=== PATIENT | female | born 1950 | race Caucasian/White ===

== ENCOUNTER → 2017-03-10 | Outpatient (CLI) | payer MEDICARE ==
[~2017-03-10] VITALS: Ht 166.4 cm; Wt 63.4 kg
[~2017-03-10] MED LIST: AEC81 PO; ASPI-1012 PO; ATOR10 PO; CEFAZOLIN SODIUM 1 GM VIAL IVP ONE; CLON0.1T PO; GENTAMICIN SULFATE 240 MG in SODIUM CHLORIDE 0.9% 100 ML IV SCH; HYDR-309 PO; KETO10 PO; LEVO50TA11 PO; LEVO88TA7 PO; PIND10TA2 PO; PREG75 PO; TEMA15CA PO; TIZA4TAB4 PO; TRAM50TA4 PO; TRAZ-147 PO; [UNRECOGNIZED DRUG - OTHER] TP
[2017-03-10 14:01] LABS: BASOPHILS % (AUTO) 0.7 % (0.0-5.0); EOSINOPHILS % (AUTO) 3.1 % (0.0-8.0); HEMATOCRIT 38.5 % (36-48); LYMPHOCYTES % (AUTO) 24.1 % (21.0-51.0); MEAN CORPUSCULAR HEMOGLOBIN 30.7 pg (27.0-33.0); MEAN CORPUSCULAR HGB CONC 33.4 g/dL (32.0-36.0); MEAN CORPUSCULAR VOLUME 91.8 fL (79-99); MONOCYTES % (AUTO) 10.3 % (3.0-13.0); NEUTROPHILS % (AUTO) 61.8 % (40.0-77.0); PLATELET COUNT (AUTO) 264 K/uL (130-400); RED CELL DISTRIBUTION WIDTH 13.1 % (11.0-15.5); WHITE BLOOD COUNT (AUTO) 5.9 K/uL (4.8-10.8)
[2017-03-10 14:10] VITALS: BP 142/61
[2017-03-10 14:11] LABS: CREATININE 0.8 mg/dL (0.5-1.5); POTASSIUM 4.2 mmol/L (3.5-5.1)
[2017-03-10 14:15] LABS: INR 0.94 (0.85-1.15); PARTIAL THROMBOPLASTIN TIME 26.1 SEC (26.3-35.5); PROTHROMBIN TIME 9.9 SEC (9.6-11.6)
[2017-03-10 15:35] LABS: APPEARANCE,URINE Clear (CLEAR); BILIRUBIN,URINE Negative (NEGATIVE); COLOR,URINE Yellow (YELLOW); GLUCOSE, URINE (UA) Negative (NEGATIVE); KETONES,URINE Negative (NEGATIVE); LEUKOCYTE ESTERASE ,URINE Moderate (NEGATIVE); NITRATE,URINE Negative (NEGATIVE); OCCULT BLOOD,URINE Negative (NEGATIVE); PROTEIN,URINE Negative (NEGATIVE); UROBILINOGEN,URINE 0.2 mg/dL (0.2-1.0)
[2017-03-10 15:43] LABS: BACTERIA,URINE None Seen /HPF (None Seen); RBC,URINE None Seen /HPF (0-1); RENAL EPITHELIAL CELLS,URINE Few /LPF (None Seen); WBC,URINE 0-1 /HPF (0-1)
== END | disposition home or self-care (01) ==
LOC: DAH 10:00 → EDSTATUS 03-17 16:00
PROVIDERS: ATTEND Orthopaedic Surgery
DX: M17.12 Unilateral primary osteoarthritis, left knee (principal); R79.1 Abnormal coagulation profile; Z96.642 Presence of left artificial hip joint
CPT/HCPCS: 36415; 80048; 81001; 85025; 85610; 85730; J1580

== ENCOUNTER 2017-05-26 15:30 | Inpatient (IN) | payer MEDICARE ==
[~2017-05-26] VITALS: Ht 166.4 cm; Wt 61.6 kg
[2017-05-26 15:30] VITALS: BP 137/63
[~2017-05-26 15:30] MED LIST changes: -AEC81 PO; -ASPI-1012 PO; -CEFAZOLIN SODIUM 1 GM VIAL IVP ONE; -CLON0.1T PO; -GENTAMICIN SULFATE 240 MG in SODIUM CHLORIDE 0.9% 100 ML IV SCH; -HYDR-309 PO; -KETO10 PO; -LEVO50TA11 PO; -LEVO88TA7 PO; -PREG75 PO; -TIZA4TAB4 PO; -TRAM50TA4 PO; -TRAZ-147 PO; -[UNRECOGNIZED DRUG - OTHER] TP
[2017-05-26 15:51] LABS: MEAN CORPUSCULAR HGB CONC 34.3 g/dL (32.0-36.0); MEAN CORPUSCULAR VOLUME 90.4 fL (79-99); PLATELET COUNT (AUTO) 273 K/uL (130-400); RED BLOOD CELL COUNT(AUTO) 4.31 MIL/uL (4.00-5.50); RED CELL DISTRIBUTION WIDTH 13.7 % (11.0-15.5); WHITE BLOOD COUNT (AUTO) 7.5 K/uL (4.8-10.8)
[2017-05-26 15:55] LABS: APPEARANCE,URINE CLEAR (CLEAR); BILIRUBIN,URINE Small (NEGATIVE); COLOR,URINE Dark Yellow (YELLOW); GLUCOSE, URINE (UA) Negative (NEGATIVE); KETONES,URINE Trace mg/dL (NEGATIVE); LEUKOCYTE ESTERASE ,URINE Moderate (NEGATIVE); NITRATE,URINE Negative (NEGATIVE); OCCULT BLOOD,URINE Negative (NEGATIVE); PROTEIN,URINE Negative (NEGATIVE)
[2017-05-26 16:05] LABS: INR 0.96 (0.85-1.15); PARTIAL THROMBOPLASTIN TIME 24.4 SEC (26.3-35.5); PROTHROMBIN TIME 10.1 SEC (9.6-11.6)
[2017-05-26 16:18] LABS: CREATININE 0.8 mg/dL (0.5-1.5); POTASSIUM 3.9 mmol/L (3.5-5.1)
[2017-05-26] MEDS ORDERED: TRAM50TA4 PO (16:21)
[2017-05-26] MEDS ORDERED: TIZA4TAB4 PO (16:21)
[2017-05-26] MEDS ORDERED: [UNRECOGNIZED DRUG - OTHER] TP (16:21)
[2017-05-26] MEDS ORDERED: LEVO88TA7 PO (16:21)
[2017-05-26] MEDS ORDERED: TRAZ-147 PO (16:21)
[2017-05-26 17:08] LABS: RBC,URINE 0-1 /HPF (0-1)
[2017-05-26 17:09] LABS: BACTERIA,URINE Few /HPF (None Seen); MUCUS,URINE Rare LPF (None Seen); SQUAMOUS EPITHELIAL CELL,UR Few /HPF (0-2)
[2017-05-26 17:30] LABS: EOSINOPHILS % (MANUAL) 5 % (1-6); LYMPHOCYTES % (MANUAL) 29 % (22-44); MAN.DIFF COMMENT-IMPRESSION MANUAL DIFFERENTIAL; MONOCYTES % (MANUAL) 11 % (2-9); REACTIVE LYMPHOCYTES 4 % (0-0); SEGMENTED NEUTROPHILS % 51 % (40-70)
[2017-05-29] VITALS (28 sets, daily range): BP systolic 144–192; BP diastolic 64–97
[2017-05-29] MEDS: CEFAZOLIN SODIUM 1 GM VIAL IVP SCH ×3 (06:00→17:19)
[2017-05-29] MEDS ORDERED: LACTATED RINGERS 1000ML 1,000 ML IV ONE (06:54)
[2017-05-29] MEDS ORDERED: TRANEXAMIC ACID 1000MG/10ML IV ONE (06:56)
[2017-05-29] MEDS ORDERED: BUPIVACAINE/EPI/PF 0.25% 30ML VIAL IJ ONE (06:56)
[2017-05-29] MEDS ORDERED: CEFAZOLIN SODIUM 1 GM VIAL ONE (06:56)
[2017-05-29] MEDS: GENTAMICIN SULFATE 240 MG in SODIUM CHLORIDE 0.9% 100 ML IV SCH ×2 (07:22)
[2017-05-29] MEDS ORDERED: ROPIVACAINE 0.5% 5MG/ML 30ML IJ ONE (08:09)
[2017-05-29] MEDS ORDERED: PROPOFOL 10 MG/ML 20ML VIAL IV ONE ×2 (08:11→09:55)
[2017-05-29] MEDS ORDERED: FENTANYL CITRATE PF 50 MCG/1 ML 2ML VIAL ONE ×5 (08:11→11:42)
[2017-05-29] MEDS ORDERED: MIDAZOLAM HCL 1 MG/ML 2ML VIAL ONE (08:11)
[2017-05-29] MEDS ORDERED: EPHEDRINE SULFATE 50 MG/ML AMPULE ONE (08:56)
[2017-05-29] MEDS ORDERED: DEXAMETHASONE SOD PHOSPHATE 4 MG/ML 1ML VIAL ONE (09:54)
[2017-05-29] MEDS ORDERED: DEXAMETHASONE SOD PHOSPHATE 10MG/ML 1ML VIAL ONE (09:54)
[2017-05-29] MEDS ORDERED: SODIUM CHLORIDE 0.9% 10 ML VIAL ONE (09:54)
[2017-05-29] MEDS ORDERED: ONDANSETRON HCL MDV 20ML 2 MG/ML VIAL ONE (09:54)
[2017-05-29] MEDS ORDERED: PHENYLEPHRINE HCL 10 MG/ML 1ML VIAL IV ONE (09:54)
[2017-05-29] MEDS ORDERED: GLYCOPYRROLATE 0.2 MG/ML 5 ML VIAL ONE (10:09)
[2017-05-29] MEDS ORDERED: NEOSTIGMINE METHYLSULFATE 1MG/ML IV ONE (10:09)
[2017-05-29] MEDS ORDERED: POTASSIUM CHLORIDE 20 MEQ ERTAB PO PRN (10:30)
[2017-05-29] MEDS: ACETAMINOPHEN 325 MG TAB PO SCH ×2 (10:30→17:19)
[2017-05-29] MEDS ORDERED: PROMETHAZINE HCL 25 MG/ML 1ML AMPULE IM PRN (10:30)
[2017-05-29] MEDS ORDERED: OXYCODONE HCL 5 MG TAB PO PRN (10:30)
[2017-05-29] MEDS ORDERED: LIDOCAINE HCL-MPF 1% 2ML VIAL IVP PRN (10:30)
[2017-05-29] MEDS ORDERED: DIPHENHYDRAMINE HCL 25 MG CAPSULE PO PRN (10:30)
[2017-05-29] MEDS ORDERED: POTASSIUM CHLORIDE 20MEQ/100ML 100 ML IV PRN (10:30)
[2017-05-29] MEDS ORDERED: POTASSIUM CHLORIDE 10% ELIXIR 20 MEQ/15 ML UDCUP PO PRN (10:30)
[2017-05-29] MEDS ORDERED: DiphenhydrAMINE HCL 50 MG/ML VIAL IVP PRN (10:30)
[2017-05-29] MEDS ORDERED: FERROUS FUMARATE 324 MG TABLET PO PRN (10:30)
[2017-05-29] MEDS ORDERED: LABETALOL HCL 5 MG/ML 20ML VIAL IV ONE (11:10)
[2017-05-29] MEDS ORDERED: MEPERIDINE-PF 25 MG/ML SYG ONE ×2 (11:16→11:33)
[2017-05-29] MEDS: PSYLLIUM SEED 1 EACH PACKET PO SCH (12:00)
[2017-05-29] MEDS ORDERED: TIZANIDINE HCL 2 MG TABLET PO PRN (14:00)
[2017-05-29] MEDS ORDERED: CEFAZOLIN 2GM / 50 ML 50 ML IV SCH (15:30)
[2017-05-29] MEDS: OXYCODONE HCL 5 MG TAB PO PRN (15:32)
[2017-05-29] MEDS: SODIUM CHLORIDE 0.9% 1000ML 1,000 ML IV SCH ×2 (15:33→21:50)
[2017-05-29] MEDS: TRAMADOL HCL 50 MG TABLET PO PRN (17:27)
[2017-05-29] MEDS: KETOROLAC TROMETHAMINE 15MG/ML IV PRN (18:16)
[2017-05-29] MEDS ORDERED: PREGABALIN 25 MG CAP PO SCH (21:00)
[2017-05-29] MEDS ORDERED: TEMAZEPAM 15 MG CAPSULE PO SCH (21:00)
[2017-05-29] MEDS: PREGABALIN 75 MG CAPSULE PO SCH (21:00)
[2017-05-29] MEDS: ASPIRIN 325 MG TABLET PO SCH (21:46)
[2017-05-29] MEDS: FAMOTIDINE 20MG TAB 20 MG TAB PO SCH (21:46)
[2017-05-29] MEDS: TRAZODONE HCL 100 MG TABLET PO SCH (21:47)
[2017-05-29] MEDS: CELECOXIB 200 MG CAP PO SCH (21:47)
[2017-05-29] MEDS: PINDOLOL 5 MG TAB PO SCH (21:48)
[2017-05-30] VITALS: BP 106/63
[2017-05-30] MEDS: KETOROLAC TROMETHAMINE 15MG/ML IV PRN ×4 (00:26→21:25)
[2017-05-30] MEDS: CEFAZOLIN SODIUM 1 GM VIAL IVP SCH (00:26)
[2017-05-30] MEDS: ACETAMINOPHEN 325 MG TAB PO SCH ×5 (00:27→22:30)
[2017-05-30 04:51] VITALS: BP 106/60
[2017-05-30] MEDS: SODIUM CHLORIDE 0.9% 1000ML 1,000 ML IV SCH (05:39)
[2017-05-30] MEDS: TRAMADOL HCL 50 MG TABLET PO PRN ×3 (05:43→17:56)
[2017-05-30 05:45] LABS: HEMATOCRIT 31.3 % (36-48); MEAN CORPUSCULAR HGB CONC 34.2 g/dL (32.0-36.0); MEAN CORPUSCULAR VOLUME 90.5 fL (79-99); PLATELET COUNT (AUTO) 193 K/uL (130-400); RED BLOOD CELL COUNT(AUTO) 3.45 MIL/uL (4.00-5.50); RED CELL DISTRIBUTION WIDTH 13.5 % (11.0-15.5); WHITE BLOOD COUNT (AUTO) 8.6 K/uL (4.8-10.8)
[2017-05-30 05:54] LABS: CREATININE 0.9 mg/dL (0.5-1.5); POTASSIUM 4.1 mmol/L (3.5-5.1)
[2017-05-30 07:40] VITALS: BP 112/55
[2017-05-30] MEDS: LEVOTHYROXINE 88 MCG TABLET PO SCH (08:06)
[2017-05-30] MEDS: ATORVASTATIN CALCIUM 20 MG TABLET PO SCH (08:34)
[2017-05-30] MEDS: ASPIRIN 325 MG TABLET PO SCH ×2 (08:34→21:24)
[2017-05-30] MEDS: FAMOTIDINE 20MG TAB 20 MG TAB PO SCH ×2 (08:35→21:24)
[2017-05-30] MEDS: CALCIUM CARBONATE 500 MG TABLET PO PRN ×2 (08:35→21:28)
[2017-05-30] MEDS: CELECOXIB 200 MG CAP PO SCH ×2 (08:35→21:24)
[2017-05-30] MEDS: PINDOLOL 5 MG TAB PO SCH ×2 (08:35→21:24)
[2017-05-30] MEDS: POLYETHYLENE GLYCOL 3350 17 GM POWD.PACK PO SCH (08:35)
[2017-05-30] MEDS: PREGABALIN 75 MG CAPSULE PO SCH ×2 (08:35→21:00)
[2017-05-30] MEDS: [UNRECOGNIZED DRUG - OTHER] TP SCH (09:00)
[2017-05-30 11:12] VITALS: BP 114/55
[2017-05-30] MEDS: PSYLLIUM SEED 1 EACH PACKET PO SCH (12:09)
[2017-05-30 16:46] VITALS: BP 121/63
[2017-05-30 19:58] VITALS: BP 128/63
[2017-05-30] MEDS ORDERED: TEMAZEPAM 15 MG CAPSULE PO SCH (21:00)
[2017-05-30] MEDS: TRAZODONE HCL 100 MG TABLET PO SCH (21:24)
[2017-05-30] MEDS: OXYCODONE HCL 5 MG TAB PO PRN (23:48)
[2017-05-31 00:10] VITALS: BP 125/59
[2017-05-31] MEDS: KETOROLAC TROMETHAMINE 15MG/ML IV PRN ×3 (03:15→15:31)
[2017-05-31] MEDS: ACETAMINOPHEN 325 MG TAB PO SCH ×3 (04:00→15:29)
[2017-05-31] MEDS: TRAMADOL HCL 50 MG TABLET PO PRN ×2 (04:01→14:19)
[2017-05-31 04:29] VITALS: BP 115/58
[2017-05-31 07:37] VITALS: BP 124/58
[2017-05-31] MEDS: PINDOLOL 5 MG TAB PO SCH (09:00)
[2017-05-31] MEDS: [UNRECOGNIZED DRUG - OTHER] TP SCH (09:00)
[2017-05-31] MEDS: PREGABALIN 75 MG CAPSULE PO SCH (09:00)
[2017-05-31] MEDS: LEVOTHYROXINE 88 MCG TABLET PO SCH (09:00)
[2017-05-31] MEDS: CELECOXIB 200 MG CAP PO SCH (09:09)
[2017-05-31] MEDS: ASPIRIN 325 MG TABLET PO SCH (09:09)
[2017-05-31] MEDS: FAMOTIDINE 20MG TAB 20 MG TAB PO SCH (09:09)
[2017-05-31] MEDS: POLYETHYLENE GLYCOL 3350 17 GM POWD.PACK PO SCH (09:11)
[2017-05-31] MEDS: ATORVASTATIN CALCIUM 20 MG TABLET PO SCH (09:11)
[2017-05-31] MEDS ORDERED: BISACODYL 5 MG TABLET.DR PO PRN (10:30)
[2017-05-31 11:16] VITALS: BP 124/60
[2017-05-31] MEDS: PSYLLIUM SEED 1 EACH PACKET PO SCH (12:00)
[2017-05-31] MEDS ORDERED: PREG75 PO (14:38)
[2017-05-31] MEDS ORDERED: HYDR-309 PO (14:38)
[2017-05-31] MEDS ORDERED: KETO10 PO (14:38)
[2017-05-31] MEDS ORDERED: ASPI-1012 PO (14:38)
[2017-06-01] MEDS ORDERED: BISACODYL 10 MG SUPP.RECT RC PRN (10:30)
== END 2017-05-31 18:32 | disposition home health service (06) | DRG 470 ==
LOC: DAHIP 05-29 06:29 → EDSTATUS 05-29 08:00 → 4AH 05-29 11:51
PROVIDERS: ADMIT Orthopaedic Surgery; ATTEND Orthopaedic Surgery
PROC: 0SRD0J9 Replacement of Left Knee Joint with Synthetic Substitute, Cemented, Open Approach (ICD-10-PCS; principal; 2017-05-29 08:23)
DX: M17.12 Unilateral primary osteoarthritis, left knee (principal); E03.9 Hypothyroidism, unspecified; I10 Essential (primary) hypertension; Z96.652 Presence of left artificial knee joint; M79.7 Fibromyalgia; G89.29 Other chronic pain; Z88.7 Allergy status to serum and vaccine
CPT/HCPCS: 36415; 80048; 81001; 85025; 85027; 85610; 85730; 88304; 88311; 96374; A4218; C1713; J0690; J1100; J1580; J1885; J2175; J2250; J2370; J2704; J2710; J2795; J3010; J3490; J7030; J7120

== ENCOUNTER → 2018-05-02 | Outpatient (CLI) | payer MEDICARE ==
[~2018-05-02] MED LIST changes: +ASPI-1012 PO; +HYDR-4457 PO; +KETO10 PO; +LEVO88TA7 PO; +PREG75 PO; +TIZA4TAB4 PO; +TRAM50TA4 PO; +TRAZ-187 PO; +[UNRECOGNIZED DRUG - OTHER] TP
== END | disposition home or self-care (01) ==
LOC: RAH 12:56
PROVIDERS: ATTEND Orthopaedic Surgery
DX: M48.061 Spinal stenosis, lumbar region without neurogenic claudication (principal); M47.816 Spondylosis without myelopathy or radiculopathy, lumbar region
CPT/HCPCS: 72148

== ENCOUNTER 2019-04-12 17:53 | Observation (INO) | payer MEDICARE ==
[~2019-04-12] VITALS: Ht 165.1 cm; Wt 69.0 kg
[~2019-04-12 17:53] MED LIST changes: +ASPI-1005 PO; -ASPI-1012 PO; +CLON0.1T PO; +GABA-531 PO; -KETO10 PO; +LOSA100T58 PO; -PREG75 PO; -TEMA15CA PO; -TIZA4TAB4 PO; -TRAM50TA4 PO; -TRAZ-187 PO; +ZOLP10TA6 PO
[2019-04-12 18:54] LABS: BASOPHILS % (AUTO) 0.5 % (0.0-5.0); EOSINOPHILS % (AUTO) 0.8 % (0.0-8.0); HEMATOCRIT 31.1 % (36-48); LYMPHOCYTES % (AUTO) 15.8 % (21.0-51.0); MEAN CORPUSCULAR HEMOGLOBIN 29.7 pg (27.0-33.0); MEAN CORPUSCULAR HGB CONC 33.8 g/dL (32.0-36.0); MEAN CORPUSCULAR VOLUME 88.1 fL (79-99); MONOCYTES % (AUTO) 7.5 % (3.0-13.0); NEUTROPHILS % (AUTO) 74.8 % (40.0-77.0); PLATELET COUNT (AUTO) 455 K/uL (130-400); RED BLOOD CELL COUNT(AUTO) 3.53 MIL/uL (4.00-5.50); RED CELL DISTRIBUTION WIDTH 13.5 % (11.0-15.5); WHITE BLOOD COUNT (AUTO) 10.4 K/uL (4.8-10.8)
[2019-04-12] MEDS ORDERED: MORPHINE SULFATE 4 MG/1ML SYG ONE (18:55)
[2019-04-12] MEDS ORDERED: SODIUM CHLORIDE 0.9% 1000ML 1,000 ML IV ONE (18:55)
[2019-04-12] MEDS ORDERED: ONDANSETRON HCL 4 MG/2 ML VIAL ONE ×2 (18:55→21:12)
[2019-04-12 19:04] LABS: CREATININE 0.8 mg/dL (0.5-1.5)
[2019-04-12 19:10] LABS: ALBUMIN 3.3 g/dL (3.5-5.0); TOTAL PROTEIN, SERUM 7.5 g/dL (6.0-8.3)
[2019-04-12] MEDS ORDERED: DICYCLOMINE HCL 10 MG/ML 2ML AMP IM ONE (19:52)
[2019-04-12] MEDS ORDERED: BISACODYL 10 MG SUPP.RECT RC ONE (19:52)
[2019-04-12] MEDS ORDERED: HYDROMORPHONE 1 MG/1 ML AMP ONE ×2 (19:54→20:20)
[2019-04-12 20:10] LABS: OCCULT BLOOD STOOL SINGLE ONLY NEGATIVE (NEGATIVE)
[2019-04-12] MEDS: SODIUM CHLORIDE 0.9% 1000ML 1,000 ML IV SCH (21:15)
[2019-04-12 22:19] LABS: BASOPHILS % (AUTO) 0.3 % (0.0-5.0); EOSINOPHILS % (AUTO) 0.3 % (0.0-8.0); LYMPHOCYTES % (AUTO) 14.3 % (21.0-51.0); MEAN CORPUSCULAR HEMOGLOBIN 29.3 pg (27.0-33.0); MEAN CORPUSCULAR VOLUME 88.8 fL (79-99); MONOCYTES % (AUTO) 8.7 % (3.0-13.0); NEUTROPHILS % (AUTO) 75.9 % (40.0-77.0); PLATELET COUNT (AUTO) 410 K/uL (130-400); RED BLOOD CELL COUNT(AUTO) 3.38 MIL/uL (4.00-5.50); RED CELL DISTRIBUTION WIDTH 13.4 % (11.0-15.5); WHITE BLOOD COUNT (AUTO) 11.4 K/uL (4.8-10.8)
[2019-04-12 22:42] LABS: CREATININE 1.6 mg/dL (0.5-1.5); POTASSIUM 3.5 mmol/L (3.5-5.1)
[2019-04-12 22:46] LABS: ALBUMIN 2.9 g/dL (3.5-5.0); TOTAL PROTEIN, SERUM 6.7 g/dL (6.0-8.3)
[2019-04-12 23:02] VITALS: BP 123/60
[2019-04-13] MEDS: KETOROLAC TROMETHAMINE 30MG/ML IV PRN ×2 (02:33→14:41)
[2019-04-13 03:53] VITALS: BP 104/50
[2019-04-13 07:46] VITALS: BP 117/60
[2019-04-13] MEDS ORDERED: DOCUSATE NA 100MG/10ML UDCUP PO SCH (09:00)
[2019-04-13] MEDS ORDERED: METOCLOPRAMIDE 10 MG/2 ML VIAL IVP SCH (09:00)
[2019-04-13] MEDS ORDERED: PANTOPRAZOLE SODIUM 40 MG TABLET.DR PO SCH (09:00)
[2019-04-13] MEDS: SODIUM CHLORIDE 0.9% 1000ML 1,000 ML IV SCH (10:35)
[2019-04-13 10:57] VITALS: BP 154/70
[2019-04-13 15:30] VITALS: BP 136/82
--- NOTE | 2019-04-13 15:31 | NUR ---
Initial: Met with pt and dtr Khadra this afternoon to discuss dcp. Per pt she lives alone but her dtr is currently staying with her to assist her as needed. Pt mentions that she receives therapy from [facility]. Per pt she has a walker, BSC, rollator, wc and sh chair avail. Per pt she feels safe and comfortable to return [place] at [place]. CM to continue to follow and wait for MD recommendations. Addendum: 04/13/19 at 1533 by GRACIE BAILEY Amended: Links added.
== END 2019-04-13 16:40 | disposition home or self-care (01) ==
LOC: EDH 17:53 → EDHIP 21:13 → INTOOBSV 21:13 → 4CH 22:06
PROVIDERS: ADMIT Internal Medicine; ATTEND Internal Medicine
DX: K59.00 Constipation, unspecified (principal); R10.84 Generalized abdominal pain; R11.2 Nausea with vomiting, unspecified; M79.7 Fibromyalgia; E06.3 Autoimmune thyroiditis; I10 Essential (primary) hypertension; R19.7 Diarrhea, unspecified; Z96.653 Presence of artificial knee joint, bilateral; Z79.82 Long term (current) use of aspirin; Z79.899 Other long term (current) drug therapy
CPT/HCPCS: 36415; 74018; 74176; 80053 ×2; 82270; 84484; 85025 ×2; 87046; 87324; 93005; 96374; 96375; 96376; 99284; 99285; G0378 ×19; J0500; J1170 ×2; J1885 ×2; J2270; J2405 ×2; J2765; J7030

== ENCOUNTER 2022-04-05 14:32 | Emergency (ER) | payer MEDICARE ==
[~2022-04-05] VITALS: Ht 165.1 cm; Wt 52.2 kg
[2022-04-05 14:39] VITALS: BP 133/73
[2022-04-05 16:04] LABS: BASOPHILS % (AUTO) 0.4 % (0.0-5.0); EOSINOPHILS % (AUTO) 2.2 % (0.0-8.0); HEMATOCRIT 40.4 % (36-48); LYMPHOCYTES % (AUTO) 26.3 % (21.0-51.0); MEAN CORPUSCULAR HEMOGLOBIN 30.1 pg (27.0-33.0); MEAN CORPUSCULAR HGB CONC 33.9 g/dL (32.0-36.0); MEAN CORPUSCULAR VOLUME 88.8 fL (79-99); MONOCYTES % (AUTO) 14.2 % (3.0-13.0); NEUTROPHILS % (AUTO) 56.5 % (40.0-77.0); PLATELET COUNT (AUTO) 200 K/uL (130-400); RED BLOOD CELL COUNT(AUTO) 4.55 MIL/uL (4.00-5.50)
[2022-04-05 16:13] LABS: POTASSIUM 3.7 mmol/L (3.5-5.1)
[2022-04-05 16:22] LABS: ALBUMIN 3.9 g/dL (3.5-5.0); TOTAL PROTEIN, SERUM 7.8 g/dL (6.0-8.3)
[2022-04-05] MEDS ORDERED: IPRATROPIUM/ALBUTEROL SULFATE 3 ML SOLUTION IH STA (16:48)
[2022-04-05] MEDS ORDERED: SOLU-MEDROL 125MG VIAL IVP ONE (17:00)
[2022-04-05] MEDS ORDERED: ALBU18HF7 IH (17:44)
[2022-04-05] MEDS ORDERED: LORA10TA7 PO (17:44)
== END 2022-04-05 18:01 | disposition home or self-care (01) ==
LOC: EDH 14:32
DX: J45.909 Unspecified asthma, uncomplicated (principal); M79.7 Fibromyalgia; I10 Essential (primary) hypertension; Z90.49 Acquired absence of other specified parts of digestive tract; Z79.899 Other long term (current) drug therapy; Z20.822 Contact with and (suspected) exposure to COVID-19; Z79.82 Long term (current) use of aspirin
CPT/HCPCS: 99285; 96374; 71045; 87635; 84484; 80053; 83880; 85025; 36415; 93005; 94640; C9803; J2930

== ENCOUNTER → 2022-06-15 | Outpatient (CLI) | payer MEDICARE ==
[~2022-06-15] MED LIST changes: +ALBU18HF7 IH; +IOHEXOL-350 75 ML VIAL IV ONE; +LORA10TA7 PO
== END | disposition home or self-care (01) ==
LOC: RAH 10:00
PROVIDERS: ATTEND Family Medicine
DX: K80.20 Calculus of gallbladder without cholecystitis without obstruction (principal); K57.90 Diverticulosis of intestine, part unspecified, without perforation or abscess without bleeding; G47.33 Obstructive sleep apnea (adult) (pediatric); R19.4 Change in bowel habit; R11.2 Nausea with vomiting, unspecified
CPT/HCPCS: 74178; Q9967

== ENCOUNTER → 2023-09-25 | Outpatient (CLI) | payer MEDICARE ==
[~2023-09-25] MED LIST changes: +IOHEXOL 350 MG/ML 100ML INFUS..BTL IV ONE; -IOHEXOL-350 75 ML VIAL IV ONE; -LOSA100T58 PO; +LOSA100T59 PO
== END | disposition home or self-care (01) ==
LOC: RAH 07:41
PROVIDERS: ATTEND Internal Medicine Cardiovascular Disease
DX: I20.9 Angina pectoris, unspecified (principal); R07.9 Chest pain, unspecified
CPT/HCPCS: 75574; Q9967